=== PATIENT | female | born 1990 | race Caucasian/White ===

== ENCOUNTER 2020-01-07 15:51 | Observation (INO) | payer MEDICAID ==
[~2020-01-07] VITALS: Ht 162.6 cm; Wt 59.0 kg
[2020-01-07 16:58] LABS: CLARITY URINE CLEAR (CLEAR); COLOR URINE YELLOW (YELLOW); KETONES URINE 1+ (NEGATIVE); LEUKOCYTE ESTERASE URINE TRACE (NEGATIVE); NITRITE URINE NEGATIVE (NEGATIVE); OCCULT BLOOD URINE NEGATIVE (NEGATIVE); PROTEIN URINE NEGATIVE (NEGATIVE); SPECIFIC GRAVITY URINE 1.015 (1.005-1.030)
== END 2020-01-07 18:12 | disposition home or self-care (01) ==
LOC: 8 EST LDRP 15:51
PROVIDERS: ADMIT Obstetrics & Gynecology; ATTEND Obstetrics & Gynecology
DX: O9A.213 Injury, poisoning and certain other consequences of external causes complicating pregnancy, third trimester (principal); O26.893 Other specified pregnancy related conditions, third trimester; R10.9 Unspecified abdominal pain; N89.8 Other specified noninflammatory disorders of vagina; Z3A.34 34 weeks gestation of pregnancy; W19.XXXA Unspecified fall, initial encounter; Y93.89 Activity, other specified; Y92.89 Other specified places as the place of occurrence of the external cause; Y99.8 Other external cause status
CPT/HCPCS: 76805; 76818; 81003; 99281; G0378

== ENCOUNTER 2020-01-31 23:10 | Observation (INO) | payer MEDICAID ==
[~2020-01-31] VITALS: Ht 162.6 cm; Wt 59.0 kg
[2020-01-31] MEDS ORDERED: PNV1TABL50 PO (23:56)
[2020-02-01] MEDS ORDERED: ACETAMINOPHEN 500MG TABLET PO PRN (00:45)
[2020-02-01 01:06] LABS: CLARITY URINE CLEAR (CLEAR); COLOR URINE YELLOW (YELLOW); KETONES URINE NEGATIVE (NEGATIVE); LEUKOCYTE ESTERASE URINE NEGATIVE (NEGATIVE); NITRITE URINE NEGATIVE (NEGATIVE); OCCULT BLOOD URINE NEGATIVE (NEGATIVE); PROTEIN URINE NEGATIVE (NEGATIVE); SPECIFIC GRAVITY URINE 1.019 (1.005-1.030)
== END 2020-02-01 01:40 | disposition home or self-care (01) ==
LOC: 8 EST LDRP 23:10
PROVIDERS: ADMIT Obstetrics & Gynecology; ATTEND Obstetrics & Gynecology
DX: O26.893 Other specified pregnancy related conditions, third trimester (principal); R10.2 Pelvic and perineal pain; Z3A.37 37 weeks gestation of pregnancy
CPT/HCPCS: 76815; 76818; 81003; 99281; G0378

== ENCOUNTER 2020-02-11 00:14 | Inpatient (IN) | payer MEDICAID ==
[~2020-02-11] VITALS: Ht 162.6 cm; Wt 59.0 kg
[~2020-02-11 00:14] MED LIST: PNV1TABL50 PO
[2020-02-11] MEDS ORDERED: DEXT 5%/LR + PITOCIN 20UNITS/L 1,000 ML IV SCH ×2 (01:44→13:38)
[2020-02-11] MEDS: LACTATED RINGERS 1,000 ML IV SCH ×2 (01:44→07:54)
[2020-02-11] MEDS ORDERED: NALOXONE HCL 0.4 MG/ML 1ML VIAL IM PRN (01:45)
[2020-02-11] MEDS ORDERED: LIDOCAINE HCL 1% 20ML VIAL (Pyxis) INJ INFIL SCH (01:45)
[2020-02-11] MEDS ORDERED: BUTORPHANOL TARTRATE 2 MG/ML VIAL IV PRN (01:45)
[2020-02-11] MEDS ORDERED: METHYLERGONOVINE MALEATE 0.2 MG/ML IM PRN (01:45)
[2020-02-11] MEDS ORDERED: CARBOPROST TROMETHAMINE 250 MCG/ML AMPUL IM PRN (01:45)
[2020-02-11 03:00] LABS: HEMATOCRIT. 28.9 % (36.0-48.0); HEMOGLOBIN. 9.8 g/dL (12.0-16.0); MEAN CORPUSCULAR HEMOGLOBIN 25.8 pg (28.0-32.0); MEAN CORPUSCULAR VOLUME 76.2 fL (81.0-99.0); MEAN PLATELET VOLUME 8.7 fl (7.4-10.4); PLATELET 286 x1000/uL (130-400); RED CELL DISTRIBUTION WIDTH 16.9 % (11.6-14.6)
[2020-02-11 03:00] LABS: CLARITY URINE CLEAR (CLEAR); COLOR URINE YELLOW (YELLOW); KETONES URINE NEGATIVE (NEGATIVE); LEUKOCYTE ESTERASE URINE NEGATIVE (NEGATIVE); NITRITE URINE NEGATIVE (NEGATIVE); OCCULT BLOOD URINE NEGATIVE (NEGATIVE); PROTEIN URINE NEGATIVE (NEGATIVE); SPECIFIC GRAVITY URINE 1.012 (1.005-1.030)
[2020-02-11 03:09] LABS: *AMPHETAMINES SCREEN URINE NEGATIVE (NEGATIVE)
[2020-02-11 03:10] LABS: *BARBITURATES SCREEN URINE NEGATIVE (NEGATIVE); *BENZODIAZEPINES SCREEN URINE NEGATIVE (NEGATIVE); *COCAINE SCREEN URINE NEGATIVE (NEGATIVE); METHADONE URINE SCREEN NEGATIVE (NEGATIVE); OPIATES URINE SCREEN NEGATIVE (NEGATIVE); PHENCYCLIDINE URINE SCREEN NEGATIVE (NEGATIVE)
[2020-02-11 03:11] LABS: CANNABINOID URINE SCREEN NEGATIVE (NEGATIVE)
[2020-02-11 03:11] LABS: PARTIAL THROMBOPLASTIN TIME 25.3 sec (23.4-31.0); PROTHROMBIN TIME 10.7 sec (9.6-11.0)
[2020-02-11 04:30] LABS: HEPATITIS B SURFACE ANTIGEN NEGATIVE
[2020-02-11 07:34] LABS: PLATELET ESTIMATE NORMAL
[2020-02-11] MEDS ORDERED: EPHEDRINE SULFATE 50MG/ML VIAL ONE (10:22)
[2020-02-11] MEDS ORDERED: LIDOCAINE HCL 2%/EPINEPHRINE 1:100,000 20 ML VIAL INFIL ONE (10:22)
[2020-02-11] MEDS ORDERED: ROPIVACAINE HCL/PF EPIDURAL 200 ML EPI ONE (11:13)
[2020-02-11] MEDS ORDERED: LACTATED RINGERS 500ML 500 ML IV SCH (11:15)
[2020-02-11] MEDS ORDERED: ROPIVACAINE HCL/PF EPIDURAL 200 ML EPI SCH (11:15)
[2020-02-11] MEDS ORDERED: FENTANYL CITRATE/PF 50MCG/ML 2ML VIAL ONE (12:06)
[2020-02-11] MEDS ORDERED: LIDOCAINE HCL/PF 2% 20MG/ML 5 ML/VIAL ONE (12:07)
[2020-02-11] MEDS ORDERED: IBUPROFEN 400MG TABLET PO PRN (13:45)
[2020-02-11] MEDS ORDERED: RHO(D) IMMUNE GLOBULIN 300 MCG/SYR IM PRN (13:45)
[2020-02-11 15:30] VITALS: BP 107/65
[2020-02-11 16:00] VITALS: BP 103/64
[2020-02-11] MEDS: IBUPROFEN 800MG TABLET PO PRN ×2 (18:07→23:10)
[2020-02-11 19:30] VITALS: BP 100/54
[2020-02-11] MEDS ORDERED: DEXT 5%/LACTATED RINGERS 1,000 ML IV SCH (20:30)
[2020-02-12] VITALS: BP 108/68
[2020-02-12 04:00] VITALS: BP 106/64
[2020-02-12 08:00] VITALS: BP 94/54
[2020-02-12 08:08] LABS: BASOPHILS % 0.2 % (0.0-2.0); EOSINOPHILS % 0.6 % (0.0-5.0); HEMATOCRIT. 27.7 % (36.0-48.0); HEMOGLOBIN. 8.9 g/dL (12.0-16.0); MEAN CORPUSCULAR HEMOGLOBIN 24.7 pg (28.0-32.0); MEAN CORPUSCULAR VOLUME 76.9 fL (81.0-99.0); MEAN PLATELET VOLUME 9.1 fl (7.4-10.4); MONOCYTES % 5.9 % (2.0-8.0); NEUTROPHILS % 79.3 % (40.0-76.0); PLATELET 237 x1000/uL (130-400)
[2020-02-12] MEDS: IBUPROFEN 800MG TABLET PO PRN ×2 (08:44→21:08)
[2020-02-12] MEDS ORDERED: ACETAMINOPHEN WITH CODEINE 300/30MG TABLET PO PRN (14:00)
[2020-02-12 20:30] VITALS: BP 97/70
[2020-02-13 04:30] VITALS: BP 99/68
[2020-02-13 08:00] VITALS: BP 104/66
[2020-02-13 08:38] VITALS: BP 99/68
[2020-02-13] MEDS: IBUPROFEN 800MG TABLET PO PRN (08:38)
== END 2020-02-13 11:24 | disposition home or self-care (01) | DRG 560 ==
LOC: 8 EST LDRP 00:14 → OBSVTOIN 00:14 → INTOOBSV 00:14 → 8 EST A/PP 14:58
PROVIDERS: ADMIT Obstetrics & Gynecology; ATTEND Obstetrics & Gynecology
PROC: 10E0XZZ Delivery of Products of Conception, External Approach (ICD-10-PCS; principal; 2020-02-13)
DX: O99.02 Anemia complicating childbirth (principal); D64.9 Anemia, unspecified; Z37.0 Single live birth; Z3A.39 39 weeks gestation of pregnancy; Z82.49 Family history of ischemic heart disease and other diseases of the circulatory system; Z83.3 Family history of diabetes mellitus; Z79.899 Other long term (current) drug therapy
CPT/HCPCS: 36415; 80305; 81003; 85025; 86592; 86703; 86762; 86850; 86900; 87340; 99281; G0378; J2590; J2795; J3010; J3490; J7120; J7121